=== PATIENT | female | born 1940 | race Caucasian/White ===

== ENCOUNTER 2021-05-01 06:30 | Day surgery (SDC) | payer MEDICARE, BC ==
[~2021-05-01] VITALS: Ht 149.9 cm; Wt 77.7 kg
[2021-05-01] MEDS ORDERED: Inderal 20 mg T20 MG (06:46)
[2021-05-01] MEDS ORDERED: OMEP20ER PO (06:46)
[2021-05-01] MEDS ORDERED: [UNRECOGNIZED DRUG - CODE] PO (06:46)
--- NOTE | 2021-05-01 07:54 | NUR ---
05/01/21 0754 Jaye Priest 0.1ML OF EPI 1MG/ML ADDED TO 10ML OF LIDOCAINE 2% FOR A SOLUTION OF LIDOCAINE 2% WITH EPI 1:100,000. THIS SOLUTION WAS THEN MIXED 1:1 WITH BUPIVICAINE 0.75%.
== END 2021-05-01 08:30 | disposition home or self-care (01) ==
LOC: ORSCSDS 06:30
PROVIDERS: Ophthalmology
PROC: 080P0ZZ Alteration of Left Upper Eyelid, Open Approach (ICD-10-PCS; principal; 2021-05-01 07:30)
PROC: 080N0ZZ Alteration of Right Upper Eyelid, Open Approach (ICD-10-PCS; principal; 2021-05-01 07:30)
DX: H02.831 Dermatochalasis of right upper eyelid (principal); H02.834 Dermatochalasis of left upper eyelid; E11.9 Type 2 diabetes mellitus without complications; I10 Essential (primary) hypertension; K21.9 Gastro-esophageal reflux disease without esophagitis; Z79.84 Long term (current) use of oral hypoglycemic drugs; Z79.899 Other long term (current) drug therapy
CPT/HCPCS: 82947; A9270; J0171; J2001; J2704; J7040

== ENCOUNTER 2023-07-07 11:51 | Day surgery (SDC) | payer MEDICARE, BC ==
[~2023-07-07] VITALS: Ht 149.9 cm; Wt 78.9 kg
[~2023-07-07 11:51] MED LIST: Inderal 20 mg T20 MG; Lactated Ringer's 1,000 ML IV ONE; OMEP20ER PO; [UNRECOGNIZED DRUG - CODE] PO; propofoL 50 ML IV ONE
[2023-07-07] MEDS ORDERED: GABA800 (12:35)
[2023-07-07] MEDS ORDERED: Lactated Ringer's 1,000 ML IV ONE (13:38)
[2023-07-07 15:14] VITALS: BP 128/66
== END 2023-07-07 15:03 | disposition home or self-care (01) ==
LOC: ORSCSDS 11:51
PROVIDERS: Internal Medicine Gastroenterology
PROC: 0DBK8ZX Excision of Ascending Colon, Via Natural or Artificial Opening Endoscopic, Diagnostic (ICD-10-PCS; principal; 2023-07-07 13:15)
PROC: 0DBL8ZX Excision of Transverse Colon, Via Natural or Artificial Opening Endoscopic, Diagnostic (ICD-10-PCS; principal; 2023-07-07 13:15)
PROC: 0DBE8ZX Excision of Large Intestine, Via Natural or Artificial Opening Endoscopic, Diagnostic (ICD-10-PCS; principal; 2023-07-07 13:15)
DX: K58.0 Irritable bowel syndrome with diarrhea (principal); Z86.010 Personal history of colon polyps; D12.2 Benign neoplasm of ascending colon; D12.3 Benign neoplasm of transverse colon; Z98.84 Bariatric surgery status; K57.30 Diverticulosis of large intestine without perforation or abscess without bleeding; E11.9 Type 2 diabetes mellitus without complications; E66.9 Obesity, unspecified; Z68.35 Body mass index [BMI] 35.0-35.9, adult; Z79.84 Long term (current) use of oral hypoglycemic drugs; Z79.899 Other long term (current) drug therapy
CPT/HCPCS: 82947; 88305; J2704; J7120